=== PATIENT | male | born 1980 | race Caucasian/White ===

== ENCOUNTER → 2019-03-15 08:34 | Outpatient (CLI) | payer BC, SELFPAY ==
--- NOTE | 2019-03-15 | DI.RAD.S_ITS ---
PROCEDURE: XR LUMBAR SPINE 2-3V INDICATIONS: LUMBAR-PELVIC PAIN ESPECIALLY L PSIS JOINT TECHNIQUE: 2 views of the lumbar spine were acquired. COMPARISON: None. FINDINGS: Bones: There are mild degenerative changes of the hip joints bilaterally. There are 5 lumbar-type vertebral bodies. There are mild multilevel degenerative changes of the lumbar spine with multilevel facet arthropathy. There is mild anterior wedging of the T12 vertebral body, most consistent with chronic degenerative change. Soft tissues: Overlying bowel gas pattern is normal. No suspicious soft tissue calcifications. IMPRESSION: 1. Mild degenerative changes of the lumbar spine and bilateral hip joints. 2. Mild anterior wedging of the T12 vertebral body most compatible with chronic degenerative change. Correlation with point tenderness is suggested to exclude acute fracture. Dictated by: Roel Crump M.D. on 03/15/2019 at 12:57 Approved by: Roel Crump M.D. on 03/15/2019 at 12:59
== END ==
PROVIDERS: Visit Provider Chiropractor
DX: M54.5 Low back pain (principal)
CPT/HCPCS: 72100